=== PATIENT | female | born 1950 | race Caucasian/White ===

== ENCOUNTER 2020-11-30 04:42 | Day surgery (SDC) | payer BC, OTHER ==
[2020-11-29 14:52] VITALS: BMI 25.0
[2020-11-30 09:06] VITALS: TEMP 97.3
[2020-11-30 09:57] VITALS: BP 133/57; PULSE 73
== END 2020-11-30 09:52 | disposition home or self-care (01) ==
LOC: JASU-ENDO 04:42
PROVIDERS: ATTEND Internal Medicine Gastroenterology
PROC: 0DBP8ZX Excision of Rectum, Via Natural or Artificial Opening Endoscopic, Diagnostic (ICD-10-PCS; principal; 2020-11-30 08:00)
DX: Z12.11 Encounter for screening for malignant neoplasm of colon (principal); K62.1 Rectal polyp; K64.8 Other hemorrhoids; Z83.71 Family history of colonic polyps
CPT/HCPCS: 88305-TC